=== PATIENT | male | born 1955 | race Hispanic/Latino ===

== ENCOUNTER → 2017-09-08 | Day surgery (SDC) | payer OTHER ==
[2017-09-07 10:15] LABS: BASOPHILS % 0.4 % (0.0-1.0); EOSINOPHILS # (AUTO) 0.4 (0.0-0.4); EOSINOPHILS % 6.1 % (0.0-6.0); HEMATOCRIT 42.1 % (38.2-49.6); HEMOGLOBIN 14.5 g/dL (14.0-18.0); LYMPHOCYTES # (AUTO) 2.2 (1.0-3.2); LYMPHOCYTES % 32.4 % (18.0-39.1); MEAN CORPUSCULAR HEMOGLOBIN 29.4 pg (28-32); MEAN CORPUSCULAR HGB CONC 34.4 g/dL (31-35); MEAN CORPUSCULAR VOLUME 85.2 fL (81-99); MONOCYTES # (AUTO) 0.6 (0.2-0.8); NEUTROPHILS # (AUTO) 3.5 (2.1-6.9); NEUTROPHILS % 51.8 % (38.7-80.0); PLATELET COUNT 234 x10e3/uL (140-360); RED BLOOD COUNT 4.94 x10e6/uL (4.3-5.7); RED CELL DISTRIBUTION WIDTH 11.9 % (11.7-14.4)
[2017-09-07 10:35] LABS: ALANINE AMINOTRANSFERASE 25 IU/L (0-55); ALBUMIN 3.6 g/dL (3.5-5.0); ALBUMIN/GLOBULIN RATIO 1.1 (0.8-2.0); ALKALINE PHOSPHATASE 77 IU/L (40-150); ANION GAP 12.3 mmol/L (8-16); BLOOD UREA NITROGEN 11 mg/dL (7-26); BUN/CREATININE RATIO 13 (6-25); CALCIUM 9.4 mg/dL (8.4-10.2); CARBON DIOXIDE 30 mmol/L (22-29); CHLORIDE 105 mmol/L (98-107); CREATININE, SERUM 0.88 mg/dL (0.72-1.25); EST GLOMERULAR FILTRATION RATE > 60 ML/MIN (60-); GLUCOSE 103 mg/dL (74-118); POTASSIUM 5.3 mmol/L (3.5-5.1); SODIUM 142 mmol/L (136-145)
[2017-09-08] VITALS (8 sets, daily range): BP systolic 102–122; BP diastolic 65–85
[~2017-09-08] VITALS: Ht 165.1 cm; Wt 75.7 kg
[~2017-09-08] MED LIST: ADVIL200 MG PO; FENTANYL CITRATE/PF 100MCG/2 ML INJ ONE; FLOMAX0.4 MG PO; LEVOCETIRIZINE D5 MG PO; LIDOCAINE HCL 2% LOCAL INJ 5 ML SDV VIAL INJ ONE; METOPROLOL TART25 MG PO; MIDAZOLAM HCL 2 MG/2 ML VIAL ONE; PROPOFOL IV EMULSION 10 MG/ML 20 ML VIAL ONE; SODIUM CHLORIDE 0.9% 1000ML 1,000 ML ONE; XARELTO20 MG PO; ZYRTEC10 MG PO
--- NOTE | 2017-09-08 14:13 | Operative Report ---
DATE OF PROCEDURE: September 08, 2017 PROCEDURE: Transesophageal echocardiogram and cardioversion. INDICATIONS: Atrial fibrillation. PROCEDURE IN DETAIL: The patient was brought to the endoscopy suite in a fasting state after written informed consent was obtained. FLEX was performed without evidence of left atrial appendage thrombus or thrombus in the left atrium. The patient was anticoagulated on Xarelto 20 mg p.o. daily. Sedation was provided by anesthesiology, and the pads were applied in the anterior and posterior approach. Synchronized biphasic cardioversion was performed at 120 joules with successful baptism of sinus rhythm. There were no immediate postprocedure complications. The rhythm was maintained, and a 12-lead ECG was requested. ASSESSMENT: Successful direct-current cardioversion with baptism of sinus rhythm from atrial fibrillation with no immediate complications. Job#: [id number]
== END | disposition home or self-care (01) ==
LOC: OR 09:05 → EDBD 10:30
PROVIDERS: ATTEND Internal Medicine
DX: I48.91 Unspecified atrial fibrillation (principal); R55 Syncope and collapse; Z01.812 Encounter for preprocedural laboratory examination; Z79.02 Long term (current) use of antithrombotics/antiplatelets; Z68.30 Body mass index [BMI] 30.0-30.9, adult; Z82.3 Family history of stroke
CPT/HCPCS: 36415; 80053; 85025; 92960; 93005; 93312; 93320; 93325; J2001; J2250; J7030